=== PATIENT | male | born 1980 | race African-American/Black ===

== ENCOUNTER 2023-08-02 14:00 | Emergency (ER) | payer OTHER ==
[~2023-08-02] VITALS: Ht 180.3 cm; Wt 69.0 kg
[2023-08-02 14:17] VITALS: O2SAT 100
[2023-08-02] MEDS ORDERED: PENICILLIN G BENZATHINE 2,400,000 UNITS/4ML SYR IM ONE (15:45)
[2023-08-02 17:26] LABS: CLARITY URINE CLEAR (CLEAR); COLOR URINE YELLOW (YELLOW); GLUCOSE URINE NEGATIVE (NEGATIVE); KETONES URINE NEGATIVE (NEGATIVE); LEUKOCYTE ESTERASE URINE NEGATIVE (NEGATIVE); NITRITE URINE NEGATIVE (NEGATIVE); OCCULT BLOOD URINE NEGATIVE (NEGATIVE); PH URINE 6.5 (4.5-8.0); PROTEIN URINE NEGATIVE (NEGATIVE); SPECIFIC GRAVITY URINE 1.022 (1.005-1.030)
[2023-08-02 18:05] VITALS: BP 118/76; PULSE 73; RESP 18; TEMP 98.4
[2023-08-05 04:11] LABS: CHLAMYDIA TRACHOMATIS NAA Negative (Negative); NEISSERIA GONORRHOEAE NAA Negative (Negative)
== END 2023-08-02 18:11 | disposition home or self-care (01) ==
LOC: ER 14:00
DX: Z20.2 Contact with and (suspected) exposure to infections with a predominantly sexual mode of transmission (principal); Z11.3 Encounter for screening for infections with a predominantly sexual mode of transmission
CPT/HCPCS: 99283; 86780; 86593; 86592; 87491; 87591; 81003; 96372; J0561

== ENCOUNTER 2023-12-18 13:00 | Emergency (ER) | payer MEDICAID ==
[~2023-12-18] VITALS: Ht 182.9 cm; Wt 72.0 kg
[2023-12-18 13:08] VITALS: BP 131/79; PULSE 55; RESP 20; TEMP 98; O2SAT 100
[2023-12-18 14:11] LABS: CLARITY URINE CLEAR (CLEAR); COLOR URINE YELLOW (YELLOW); GLUCOSE URINE NEGATIVE (NEGATIVE); KETONES URINE NEGATIVE (NEGATIVE); LEUKOCYTE ESTERASE URINE NEGATIVE (NEGATIVE); NITRITE URINE NEGATIVE (NEGATIVE); OCCULT BLOOD URINE NEGATIVE (NEGATIVE); PH URINE 7.5 (4.5-8.0); PROTEIN URINE NEGATIVE (NEGATIVE); SPECIFIC GRAVITY URINE 1.018 (1.005-1.030)
[2023-12-18] MEDS: PENICILLIN G BENZATHINE 2,400,000 UNITS/4ML SYR IM ONE (15:24)
[2023-12-21 04:07] LABS: CHLAMYDIA TRACHOMATIS NAA Negative (Negative); NEISSERIA GONORRHOEAE NAA Negative (Negative)
== END 2023-12-18 15:25 | disposition home or self-care (01) ==
LOC: ER 13:00
DX: A51.49 Other secondary syphilitic conditions (principal)
CPT/HCPCS: 99283; 86780; 86593; 86592; 87491; 87591; 81003; 96372; J0561

== ENCOUNTER 2023-12-30 01:34 | Emergency (ER) | payer OTHER ==
[~2023-12-30] VITALS: Ht 180.3 cm; Wt 66.0 kg
[2023-12-30 01:47] VITALS: BP 113/37; O2SAT 97
[2023-12-30] MEDS: PENICILLIN G BENZATHINE 2,400,000 UNITS/4ML SYR IM ONE (02:27)
[2023-12-30 02:31] LABS: CLARITY URINE CLEAR (CLEAR); COLOR URINE YELLOW (YELLOW); GLUCOSE URINE NEGATIVE (NEGATIVE); KETONES URINE TRACE (NEGATIVE); LEUKOCYTE ESTERASE URINE NEGATIVE (NEGATIVE); NITRITE URINE NEGATIVE (NEGATIVE); OCCULT BLOOD URINE NEGATIVE (NEGATIVE); PROTEIN URINE NEGATIVE (NEGATIVE); SPECIFIC GRAVITY URINE 1.023 (1.005-1.030)
[2023-12-30 02:46] VITALS: PULSE 71; RESP 14; TEMP 97.6
== END 2023-12-30 02:47 | disposition home or self-care (01) ==
LOC: ER 01:34
DX: A53.9 Syphilis, unspecified (principal)
CPT/HCPCS: 99283; 81003; 96372; J0561

== ENCOUNTER 2024-01-24 05:25 | Emergency (ER) | payer OTHER ==
[~2024-01-24] VITALS: Ht 180.3 cm; Wt 71.0 kg
[2024-01-24 05:33] VITALS: O2SAT 100
[2024-01-24] MEDS: PENICILLIN G BENZATHINE 2,400,000 UNITS/4ML SYR IM ONE (06:52)
[2024-01-24 06:53] VITALS: BP 119/78; PULSE 60; RESP 18; TEMP 98.2
== END 2024-01-24 07:07 | disposition home or self-care (01) ==
LOC: ER 05:41
DX: Z20.2 Contact with and (suspected) exposure to infections with a predominantly sexual mode of transmission (principal)
CPT/HCPCS: 99283; 96372; J0561

== ENCOUNTER 2024-09-09 01:16 | Emergency (ER) | payer MEDICAID, OTHER ==
[~2024-09-09] VITALS: Ht 180.3 cm; Wt 75.5 kg
[2024-09-09 01:59] VITALS: BP 119/72; PULSE 76; RESP 16; TEMP 98.8; O2SAT 99
[2024-09-09] MEDS: PENICILLIN G BENZATHINE 2,400,000 UNITS/4ML SYR IM NR (04:15)
[2024-09-09] MEDS: DIPHENHYDRAMINE 25MG CAPSULE PO ONE (04:17)
== END 2024-09-09 04:23 | disposition home or self-care (01) ==
LOC: ER 01:16
DX: Z20.2 Contact with and (suspected) exposure to infections with a predominantly sexual mode of transmission (principal)
CPT/HCPCS: 99283; 96372; J0561; Q0163

== ENCOUNTER 2024-10-07 10:48 | Emergency (ER) | payer MEDICAID, OTHER ==
[~2024-10-07] VITALS: Ht 170.2 cm; Wt 73.0 kg
[2024-10-07 10:54] VITALS: O2SAT 98
[2024-10-07] MEDS ORDERED: PENICILLIN G BENZATHINE 2,400,000 UNITS/4ML SYR IM ONE (12:45)
[2024-10-07] MEDS: PENICILLIN G BENZATHINE 2,400,000 UNITS/4ML SYR IM ONE (13:22)
[2024-10-07 13:26] VITALS: BP 105/58; PULSE 90; RESP 18; TEMP 36.55848; O2SAT 98
== END 2024-10-07 13:27 | disposition home or self-care (01) ==
LOC: ER 10:48
DX: A51.49 Other secondary syphilitic conditions (principal)
CPT/HCPCS: 99283; 96372; J0561